=== PATIENT | male | born 1940 | race Caucasian/White ===

== ENCOUNTER 2024-11-01 15:39 | Inpatient (IN) | payer OTHER, MEDICARE ==
[~2024-11-01] VITALS: Ht 177.8 cm; Wt 85.4 kg
[~2024-11-01 15:39] MED LIST: ASPI81EC PO; ATEN50 PO; GLUC500; LISI20 PO; LOVA40 PO; OMEP20ER PO; Percocet 10-321 EACH PO; SAWPALMETTO; VALS80; Valium5 MG PO
[2024-11-01] MEDS ORDERED: NS 1,000 ML IV SCH ×2 (16:00→18:10)
[2024-11-01 16:12] LABS: BASOPHILS ABSOLUTE AUTO 0.04 K/mm3 (0.00-0.23); BASOPHILS PERCENT AUTO 0 % (0-2); EOSINOPHILS ABSOLUTE AUTO 0.04 K/mm3 (0.00-0.68); EOSINOPHILS PERCENT AUTO 0 % (0-6); Hematocrit 40.6 % (37.0-53.0); Hemoglobin 13.9 g/dL (13.5-17.5); IMMATURE GRAN ABSOLUTE AUTO 0.08 K/mm3 (0.00-0.10); IMMATURE GRAN PERCENT AUTO 1 % (0-1); LYMPHOCYTES ABSOLUTE AUTO 1.09 K/mm3 (0.84-5.20); LYMPHOCYTES PERCENT AUTO 8 % (21-46); MONOCYTES ABSOLUTE AUTO 1.49 K/mm3 (0.16-1.47); MONOCYTES PERCENT AUTO 10 % (4-13); Mean Corpuscular HGB 30.8 pg (26.0-34.0); Mean Corpuscular HGB Conc 34.2 g/dL (31.5-36.5); Mean Corpuscular Volume 90 fL (80-100); Mean Platelet Volume 11.7 fL (9.1-12.4); NEUTROPHILS ABSOLUTE AUTO 11.72 K/mm3 (1.96-9.15); NEUTROPHILS PERCENT AUTO 81 % (41-73); Platelet Count 161 K/mm3 (150-400); RDW Coefficient Variation 12.7 % (11.7-14.2); RDW Standard Deviation 41.9 fL (35.1-46.3); Red Blood Cell Count 4.51 M/mm3 (4.30-5.90); White Blood Cell Count 14.46 K/mm3 (4.00-11.30)
[2024-11-01] MEDS ORDERED: Acetaminophen 325 MG TABLET PO ONE (16:20)
[2024-11-01 16:52] LABS: Albumin, Blood 2.5 g/dL (3.4-5.0); Albumin/Globulin Ratio 0.7 (0.8-1.8); Bun/Creatinine Ratio 54.8 (12.0-20.0); Calcium, Blood 8.8 mg/dL (8.5-10.1); Creatinine, Blood 0.62 mg/dL (0.60-1.20); Globulin, Blood 3.8 g/dL (2.2-4.0); Potassium, Blood 4.9 mmol/L (3.5-5.5); Total Protein, Blood 6.3 g/dL (6.4-8.2)
[2024-11-01] MEDS ORDERED: Diltiazem HCl 5 MG / ML 5ML Vial IV ONE (21:35)
[2024-11-01 22:13] LABS: Source, Urine Voided
[2024-11-01 22:18] LABS: Bilirubin, Urine Neg (Neg); Blood, Urine Neg (Neg); Glucose Qualitative, Urine Neg (Neg); Ketones, Urine 3+ (Neg); Leukocyte Esterase, Urine Neg (Neg); Nitrite, Urine Neg (Neg); Protein, Urine 2+ (Neg); Urobilinogen, Urine 1+ (Normal)
[2024-11-01 22:26] LABS: Appearance, Urine Clear (Clear); Color, Urine Yellow (P-Yellow)
[2024-11-01 22:41] LABS: Amorphous Light (0-Heavy); Bacteria Rare /hpf; Red Blood Cells, Urine Not Seen /hpf (0-2); Squamous Epithelial Cells Rare /hpf (Few); White Blood Cells, Urine 0-2 /hpf (0-5)
[2024-11-01] MEDS ORDERED: Acetaminophen 325 MG TABLET PO PRN (23:55)
[2024-11-01] MEDS ORDERED: Ondansetron HCl 2 MG / ML 2ML Vial IV PRN (23:55)
[2024-11-02] VITALS (14 sets, daily range): BP systolic 96–127; BP diastolic 68–90
[2024-11-02] MEDS ORDERED: dilTIAZem HCL 125 MG in Dextrose 5% 100 ML IV SCH (00:10)
[2024-11-02] MEDS ORDERED: Lactated Ringer's 1,000 ML IV SCH (00:10)
[2024-11-02 00:34] LABS: Magnesium, Blood 1.2 mg/dL (1.6-2.4)
[2024-11-02 00:36] LABS: Thyroid Stimulating Hormone 4.26 uIU/mL (0.360-4.800)
[2024-11-02] MEDS ORDERED: Magnesium Sulf 2 GM/Water 50ML 50 ML IV ONE (01:30)
[2024-11-02] MEDS ORDERED: Flonase 0.05% N16 GM (05:00)
[2024-11-02] MEDS ORDERED: METO50 PO (05:01)
[2024-11-02] MEDS ORDERED: NARCAN4 M1 (05:01)
[2024-11-02] MEDS ORDERED: ZYRTEC10 M2 PO (05:02)
[2024-11-02] MEDS ORDERED: ATOR10 PO (05:02)
[2024-11-02] MEDS ORDERED: ALLO100 PO (05:03)
[2024-11-02] MEDS ORDERED: ELIQUIS5 M2 PO (05:03)
[2024-11-02] MEDS ORDERED: BISA5EC PO (05:03)
[2024-11-02] MEDS ORDERED: OMEP20ER PO (05:04)
[2024-11-02] MEDS ORDERED: METF500C PO (05:04)
[2024-11-02] MEDS ORDERED: LOSA25 PO (05:05)
[2024-11-02] MEDS ORDERED: TAMS.4ER PO (05:05)
[2024-11-02] MEDS ORDERED: Bisacodyl 5 MG TabEC PO PRN (05:30)
[2024-11-02] MEDS ORDERED: OxyCODONE 10/Acetamin 325 TABLET PO PRN (05:35)
[2024-11-02] MEDS ORDERED: Omeprazole 20 MG CapCR PO SCH (06:00)
--- NOTE | 2024-11-02 06:57 | NUR ---
NOC SHIFT SUMMARY PT ARRIVED TO UNIT, ORIENTED X2-3. CONFUSED AND HALLUCINATIONS NOTED. PT REPORTS DRINKING 3-4 GLASSES OF WINE A DAY BUT STOPPED A WEEK AGO WHEN HE GOT [facility]. SON AT BEDSIDE, PLEASANT AND COOPERATIVE. PT PULLED MULTIPLE IVS, REDIRECTABLE AND BOTH IVS WRAPPED. CARDIZEM GTT AT 5MG/ML
[2024-11-02 07:08] LABS: BASOPHILS ABSOLUTE AUTO 0.02 K/mm3 (0.00-0.23); BASOPHILS PERCENT AUTO 0 % (0-2); EOSINOPHILS ABSOLUTE AUTO 0.03 K/mm3 (0.00-0.68); EOSINOPHILS PERCENT AUTO 0 % (0-6); Hematocrit 39.2 % (37.0-53.0); Hemoglobin 13.5 g/dL (13.5-17.5); IMMATURE GRAN ABSOLUTE AUTO 0.06 K/mm3 (0.00-0.10); IMMATURE GRAN PERCENT AUTO 1 % (0-1); LYMPHOCYTES ABSOLUTE AUTO 1.16 K/mm3 (0.84-5.20); LYMPHOCYTES PERCENT AUTO 9 % (21-46); MONOCYTES PERCENT AUTO 11 % (4-13); Mean Corpuscular HGB Conc 34.4 g/dL (31.5-36.5); Mean Corpuscular Volume 90 fL (80-100); Mean Platelet Volume 10.8 fL (9.1-12.4); NEUTROPHILS ABSOLUTE AUTO 10.53 K/mm3 (1.96-9.15); NEUTROPHILS PERCENT AUTO 79 % (41-73); Platelet Count 145 K/mm3 (150-400); RDW Coefficient Variation 12.8 % (11.7-14.2); RDW Standard Deviation 42.5 fL (35.1-46.3); Red Blood Cell Count 4.35 M/mm3 (4.30-5.90)
[2024-11-02 07:25] LABS: Albumin, Blood 2.3 g/dL (3.4-5.0); Albumin/Globulin Ratio 0.6 (0.8-1.8); Bilirubin, Total 0.8 mg/dL (0.1-1.0); Bun/Creatinine Ratio 54.2 (12.0-20.0); Calcium, Blood 8.1 mg/dL (8.5-10.1); Creatinine, Blood 0.55 mg/dL (0.60-1.20); Globulin, Blood 3.6 g/dL (2.2-4.0); Magnesium, Blood 1.8 mg/dL (1.6-2.4); Total Protein, Blood 5.9 g/dL (6.4-8.2)
[2024-11-02] MEDS ORDERED: Fluticasone 0.05% Nasal Spray SCH (09:00)
[2024-11-02] MEDS ORDERED: Allopurinol 100 MG Tab PO SCH (09:00)
[2024-11-02] MEDS ORDERED: Loratadine 10 MG Tab PO SCH (09:00)
[2024-11-02] MEDS ORDERED: Atorvastatin 10 MG Tab PO SCH (09:00)
[2024-11-02] MEDS ORDERED: Enoxaparin 40 MG/0.4 ML SYR SC SCH (09:00)
[2024-11-02] MEDS ORDERED: Apixaban 5 MG Tab PO SCH (09:00)
[2024-11-02] MEDS ORDERED: Losartan Potassium 25 MG Tab PO SCH (09:00)
[2024-11-02] MEDS ORDERED: Tamsulosin HCl 0.4 MG Cap PO SCH (09:00)
[2024-11-02] MEDS ORDERED: NS 500 ML IV SCH (10:00)
[2024-11-02] MEDS ORDERED: NS 500 ML IV ONE (11:00)
[2024-11-02] MEDS ORDERED: Metoprolol Tartrate 50 MG Tab PO SCH (12:00)
--- NOTE | 2024-11-02 16:29 | NUR ---
SHIFT SUMMARY. PT HAS DONE WELL OVERALL. AOX3-4, PLEASANT, COOPERATIVE, ABLE TO MAKE NEEDS KNOWN. SPEECH THERAPY EVALUATION THIS MORNING, PT CLEAR FOR THIN LIQUIDS, MINCED + MOIST DIET. PAIN ADEQUATELY MANAGED VIA EMAR. DILT DRIP HAS BEEN OFF SINCE ABOUT 1230, HR HAS PRIMARILY BEEN IN THE 80s-90s RANGE SINCE. BP STABLE. MAINTAINING ADEQUATE SATURATION ON ROOM AIR. PT HAD ESOPHAGEAL DILATION + BIOPSY SCHEDULED OUTPATIENT TODAY BUT WAS UNABLE TO HAVE IT COMPLETED INPATIENT. SON REPORTS THAT HE IS UNSURE WHEN HE WILL BE ABLE TO HAVE OPERATION RESCHEDULED. SHIFT OTHERWISE UNREMARKABLE. BED LOCKED IN LOWEST POSITION. CALL LIGHT WITHIN REACH. CONTINUING TO MONITOR.
--- NOTE | 2024-11-02 18:29 | NUR ---
PALLIATIVE CARE NOTE: ATTEMPTED TO MEET WITH PT TO DISCUSS CODE STATUS. PT SLEEPING ON MULTIPLE ATTEMPTS. DID SPEAK TO SON ABILIO IN ROOM. ABILIO STATED HE WAS PRESENT WHEN MD HAD CONVERSATION ABOUT CODE STATUS AND PT HAD DECIDED HE WOULD WANT CPR IF NEEDED. PT SLEPT THROUGH OUR CONVERSATION IN THE ROOM. PT APPEARED COMFORTABLE AND IN NO APPARENT DISTRESS. RR E/U.
[2024-11-02] MEDS ORDERED: NS 1,000 ML IV SCH (22:40)
[2024-11-03 03:44] VITALS: BP 136/93
[2024-11-03 04:41] LABS: BASOPHILS ABSOLUTE AUTO 0.04 K/mm3 (0.00-0.23); BASOPHILS PERCENT AUTO 0 % (0-2); EOSINOPHILS ABSOLUTE AUTO 0.08 K/mm3 (0.00-0.68); EOSINOPHILS PERCENT AUTO 1 % (0-6); Hematocrit 37.2 % (37.0-53.0); Hemoglobin 12.5 g/dL (13.5-17.5); IMMATURE GRAN ABSOLUTE AUTO 0.08 K/mm3 (0.00-0.10); IMMATURE GRAN PERCENT AUTO 1 % (0-1); LYMPHOCYTES ABSOLUTE AUTO 0.85 K/mm3 (0.84-5.20); LYMPHOCYTES PERCENT AUTO 7 % (21-46); MONOCYTES ABSOLUTE AUTO 1.33 K/mm3 (0.16-1.47); MONOCYTES PERCENT AUTO 11 % (4-13); Mean Corpuscular HGB Conc 33.6 g/dL (31.5-36.5); Mean Corpuscular Volume 89 fL (80-100); Mean Platelet Volume 11.1 fL (9.1-12.4); NEUTROPHILS ABSOLUTE AUTO 9.71 K/mm3 (1.96-9.15); NEUTROPHILS PERCENT AUTO 80 % (41-73); Platelet Count 138 K/mm3 (150-400); RDW Coefficient Variation 12.8 % (11.7-14.2); RDW Standard Deviation 41.9 fL (35.1-46.3); Red Blood Cell Count 4.16 M/mm3 (4.30-5.90); White Blood Cell Count 12.09 K/mm3 (4.00-11.30)
[2024-11-03 05:03] LABS: Albumin, Blood 2.2 g/dL (3.4-5.0); Albumin/Globulin Ratio 0.6 (0.8-1.8); Bilirubin, Total 0.7 mg/dL (0.1-1.0); Bun/Creatinine Ratio 56.6 (12.0-20.0); Calcium, Blood 8.3 mg/dL (8.5-10.1); Creatinine, Blood 0.46 mg/dL (0.60-1.20); Globulin, Blood 3.6 g/dL (2.2-4.0); Total Protein, Blood 5.8 g/dL (6.4-8.2)
[2024-11-03] MEDS ORDERED: Metoprolol Tartrate 50 MG Tab PO STA (06:22)
--- NOTE | 2024-11-03 06:54 | NUR ---
SHIFT SUMMARY: PT IS A&O TO SELF AND PERSON, CONFUSED. HYPOTENSIVE 96/71, HR TACHY >100, ON RA SATTING 88%, PLACED PT ON 2L O2 VIA NC. AFIB 90'S-140'S. THIS RN WAS NOT ABLE TO GIVE HIS NIGHT DOSE OF LOPRESSOR D/T BP PARAMETERS NOT BEING MET. CALLED HOSPITALIST LATER FOR HR INCREASING TO 130'S. HE ORDERED TO GIVE HIS MORNING DOSE OF LOPRESSOR EARLY AT 0400. C/O PAIN IN HIS THROAT AND BACK, MEDICATED PER EMAR. X2 ASSIST, NOOB THIS SHIFT. REPOSITIONS SELF IN BED. PT INCONTINENT OF URINE, BRIEF IN PLACE. AFTER MULTIPLE BED CHANGES, PLACED WICKING SYSTEM ON PT. SMALL AMOUNTS OF SHILA COLORED URINE. NO BM THIS SHIFT. BED IN LOWEST POSITION, CALL LIGHT WITHIN REACH. BED ALARM SET FOR PT'S SAFETY D/T PT NOT USING CALL LIGHT APPROPRIATELY.
[2024-11-03] MEDS ORDERED: Metoprolol Tartrate 1 MG/ML 5 ML VIAL IV ONE (07:40)
--- NOTE | 2024-11-03 07:43 | NUR ---
ASSUMPTION NOTE: THIS RN TO ASSUME CARE OF PATIENT. PATIENT IS AWAKE AND TALKING WITH DOCTORS. IS ALERT AND ORIENTED X2-3, KNOWS HE IS IN [place], NOT AWARE HE IS IN THE HOSPITAL. ALERT TO SELF & HIS SON. STAT ORDER WAS DC'D AND MEDICATION CHANGED FROM THIS EVENING TO AFTERNOON. TO BE GIVEN STAT LOPRESSOR AWAITING ORDER. PATIENT HAS CALL LIGHT WITHIN REACH, BED IN LOWEST POSITION & STATING NOTHING ELSE IS NEEDED AT THIS TIME.
[2024-11-03 07:44] VITALS: BP 123/96
[2024-11-03] MEDS ORDERED: Metoprolol Tartrate 25 MG Tab PO ONE (09:55)
--- NOTE | 2024-11-03 10:29 | NUR ---
MD ROUNDED: MD ROUNDED AND STATED DISCHARGE POTENTIALLY TOMORROW AND TO HAVE PT'S SON SCHEDULE THE BIOPSY OUTPT HE MISSED IT DUE TO BEING ADMITTED.
[2024-11-03 11:21] VITALS: BP 90/62
[2024-11-03 12:35] VITALS: BP 121/97
[2024-11-03] MEDS ORDERED: Metoprolol Tartrate 50 MG Tab PO SCH ×2 (13:00)
[2024-11-03] MEDS ORDERED: TraMADol HCl 50 MG Tab PO PRN (14:45)
--- NOTE | 2024-11-03 14:54 | NUR ---
TRANSFER NOTE: REPORT GIVEN TO RECEIVING RN PRIOR TO ARRIVAL. PT IS ALERT AND ORIENTED X2-3,SEE PREVIOUS NOTES FOR MORE INFORMATION. SON AT BEDSIDE WITH PT. WORKED WITH PHYSICAL THERAPY AND WAS ABLE TO SIT AT BEDSIDE AND DO SOME STRETHCES DUE TO FEELING LIGHT HEADED/DIZZY AND SOME ABDOMINAL PAIN. PT STATED "HE FELT LIKE HE NEEDED TO POOP". WAS MEDICATED FOR PAIN & GIVEN A PRN STOOL SOFTENER ALONG WITH A BROWN COW TO HELP. PT IS ON TELE SHOWING AFIB WITH RATE 110-120, MEDCIATIONS WERE ADJSUTED TO CONTROL HEART RATE THIS MORNING PER MD. PATIENT SATTING >92% ON ROOM AIR. HAS A HEATING PAD FOR SOME PAIN. TOOK ALL PERSONAL BELONGINGS WITH HIM ALONG WITH CHART.
[2024-11-03] MEDS ORDERED: NS 1,000 ML IV SCH (15:25)
--- NOTE | 2024-11-03 15:45 | NUR ---
PATIENT TRANSFERRED FROM PCU 9 TO ROOM 354, REPORT RECEIVED FROM GLORIA HOFF. PATIENT A/O TO SELF AND FAMILY ONLY AT THIS TIME. REPORTS GOOD PAIN CONTROL. ORIENTED TO ROOM AND USE OF CALL LIGHT. SON AT BEDSIDE AND PLAN OF CARE DISCUSSED. PATIENT A-FIB ON TELE WITH HR 100-110. BED ALARM SET FOR SAFETY.
[2024-11-03 16:28] VITALS: BP 117/82
[2024-11-03 19:21] VITALS: BP 116/84
[2024-11-03] MEDS ORDERED: Calcium Carbonate 500 MG Tab Chew PO PRN (21:10)
--- NOTE | 2024-11-03 22:33 | NUR ---
FLOOR INSTALLATION MECHANIC, VICKEY KNOX, CALLED TO LET RN KNOW THE PT HAD A 6 SEC RUN OF AFIB RVR RATE OF 152. PT HAS RETURNED TO AFIB RATE OFF 122 AT TIME OF CALL. CHECKED ON PT, NO SIGNS OF DISTRESS. ABILIO, PRIMARY NURSE, HAS BEEN NOTIFIED.
[2024-11-04 00:11] VITALS: BP 130/102
--- NOTE | 2024-11-04 06:46 | NUR ---
SHIFT SUMMARY PT ALERT AND ORIENTED TIMES 2 . PT ADMITTED FOR ATRIAL FIB WITH RVR. PT IS CONFUSED AT TIMES. PT STATES THIS NURSE IS ALSO A SENATOR, AND ONE OF THREE, THAT HE NEEDED TO TALK TO. PT WAS IRRATATED WITH TELE AND KEPT TAKING IT OFF, AND EVENTUALLY REFUSING TO WEAR IT. PT PULLED HIS IV, STATING HE DID NOT WANT IT ANYMORE. PT PULLED HIS PUREWICK OFF. HE REFUSED TO HAVE STAFF HELP WITH CHANGING HIS CLOTHING. HE DID ASK FOR FOOD AND WAS GIVEN TURKEY SANDWICH AND ORANGE SHERBERT. I0 PT IS COOPERATIVE WITH CARE. CALL LIGHT WITHIN REACH, RAILS TIMES 2, BED IN LOW POSITION.
[2024-11-04] MEDS ORDERED: NS 1,000 ML IV SCH (07:00)
[2024-11-04 07:44] VITALS: BP 136/85
[2024-11-04] MEDS ORDERED: Metoprolol Tartrate 50 MG Tab PO SCH (08:00)
[2024-11-04 11:53] VITALS: BP 130/92
[2024-11-04 13:02] LABS: BASOPHILS ABSOLUTE AUTO 0.05 K/mm3 (0.00-0.23); BASOPHILS PERCENT AUTO 0 % (0-2); EOSINOPHILS ABSOLUTE AUTO 0.03 K/mm3 (0.00-0.68); EOSINOPHILS PERCENT AUTO 0 % (0-6); Hematocrit 40.6 % (37.0-53.0); Hemoglobin 13.9 g/dL (13.5-17.5); IMMATURE GRAN ABSOLUTE AUTO 0.09 K/mm3 (0.00-0.10); IMMATURE GRAN PERCENT AUTO 1 % (0-1); LYMPHOCYTES ABSOLUTE AUTO 1.16 K/mm3 (0.84-5.20); LYMPHOCYTES PERCENT AUTO 8 % (21-46); MONOCYTES ABSOLUTE AUTO 1.62 K/mm3 (0.16-1.47); MONOCYTES PERCENT AUTO 11 % (4-13); Mean Corpuscular HGB 30.8 pg (26.0-34.0); Mean Corpuscular HGB Conc 34.2 g/dL (31.5-36.5); Mean Corpuscular Volume 90 fL (80-100); Mean Platelet Volume 11.3 fL (9.1-12.4); NEUTROPHILS ABSOLUTE AUTO 12.08 K/mm3 (1.96-9.15); NEUTROPHILS PERCENT AUTO 80 % (41-73); Platelet Count 148 K/mm3 (150-400); RDW Coefficient Variation 12.9 % (11.7-14.2); RDW Standard Deviation 42.3 fL (35.1-46.3); Red Blood Cell Count 4.51 M/mm3 (4.30-5.90); White Blood Cell Count 15.03 K/mm3 (4.00-11.30)
[2024-11-04 13:25] LABS: Albumin, Blood 2.3 g/dL (3.4-5.0); Albumin/Globulin Ratio 0.7 (0.8-1.8); Bilirubin, Total 0.8 mg/dL (0.1-1.0); Bun/Creatinine Ratio 49.1 (12.0-20.0); Calcium, Blood 8.7 mg/dL (8.5-10.1); Creatinine, Blood 0.51 mg/dL (0.60-1.20); Globulin, Blood 3.5 g/dL (2.2-4.0); Total Protein, Blood 5.8 g/dL (6.4-8.2)
[2024-11-04 15:32] VITALS: BP 115/82
--- NOTE | 2024-11-04 17:14 | NUR ---
SHIFT SUMMARY PT IS A/O TO FAMILY, SELF AND PLACE AT TIMES. PT IS IMPULSIVE AT TIMES WITH PULLING AT LINES/CORDS. ON TELE RUNNING AFIB IN THE 100-110'S. PER DIRECTOR OF TAX SERVICES OCCASIONALLY, BRIEFLY IN THE 130'S, PHYSICAN AWARE. NS RUNNING @ 100 ML/HR. SON AT BEDSIDE THROUGHOUT THIS SHIFT. PT PRESENTS WITH LITTLE MOTIVATION.
[2024-11-04] MEDS ORDERED: Polyethylene Glycol 3350 17 gm PO PRN (18:00)
[2024-11-04 19:54] VITALS: BP 116/85
[2024-11-04] MEDS ORDERED: OLANZapine 10 MG Vial IM ONE (20:40)
[2024-11-04] MEDS ORDERED: Melatonin 3 MG Tab PO SCH (21:00)
[2024-11-05] VITALS (7 sets, daily range): BP systolic 106–126; BP diastolic 74–94
[2024-11-05 04:43] LABS: BASOPHILS ABSOLUTE AUTO 0.06 K/mm3 (0.00-0.23); BASOPHILS PERCENT AUTO 0 % (0-2); EOSINOPHILS ABSOLUTE AUTO 0.06 K/mm3 (0.00-0.68); EOSINOPHILS PERCENT AUTO 0 % (0-6); Hematocrit 38.1 % (37.0-53.0); IMMATURE GRAN ABSOLUTE AUTO 0.09 K/mm3 (0.00-0.10); IMMATURE GRAN PERCENT AUTO 1 % (0-1); LYMPHOCYTES ABSOLUTE AUTO 1.07 K/mm3 (0.84-5.20); LYMPHOCYTES PERCENT AUTO 7 % (21-46); MONOCYTES ABSOLUTE AUTO 1.91 K/mm3 (0.16-1.47); MONOCYTES PERCENT AUTO 12 % (4-13); Mean Corpuscular HGB 30.4 pg (26.0-34.0); Mean Corpuscular HGB Conc 34.1 g/dL (31.5-36.5); Mean Corpuscular Volume 89 fL (80-100); Mean Platelet Volume 11.2 fL (9.1-12.4); NEUTROPHILS ABSOLUTE AUTO 12.36 K/mm3 (1.96-9.15); NEUTROPHILS PERCENT AUTO 79 % (41-73); Platelet Count 141 K/mm3 (150-400); RDW Coefficient Variation 12.9 % (11.7-14.2); RDW Standard Deviation 42.3 fL (35.1-46.3); Red Blood Cell Count 4.27 M/mm3 (4.30-5.90); White Blood Cell Count 15.55 K/mm3 (4.00-11.30)
[2024-11-05 05:07] LABS: Albumin/Globulin Ratio 0.6 (0.8-1.8); Bun/Creatinine Ratio 46.1 (12.0-20.0); Calcium, Blood 8.1 mg/dL (8.5-10.1); Creatinine, Blood 0.5 mg/dL (0.60-1.20); Globulin, Blood 3.4 g/dL (2.2-4.0); Potassium, Blood 4.3 mmol/L (3.5-5.5); Total Protein, Blood 5.4 g/dL (6.4-8.2)
--- NOTE | 2024-11-05 06:22 | NUR ---
SHIFT SUMMARY PT ALERT AND ORIENTED TIMES 2 . PT ADMITTED FOR ATRIAL FIB WITH RVR. PT IS CONFUSED AT TIMES. PT BECAME INCREASINGLY AGITATED AND CONFUSED. REMOVING TELE, O2, PUREWICK, AND PULSE OX. ONE TIME ORDER FOR ZYPREXA 5ML IM OBTAINED AND ADMINISTERED IN LEFT DELTOID. PT TOLERATED WELL AND APPEARED MUCH LESS AGITATED AND APPEARED TO SLEEP FOR SEVERL HOURS ON AND OFF. PT WAS GIVEN WATER TO DRINK REQUESTED. PT FINISHED IV FLUIDS AND IS SALINE LOCKED. PT WAS CHANGED AND GIVEN BED BATH. PT REFUSED TELE THROUGHOUT THE NIGHT.TELE SENT BACK. PT APPEARS TO BE RESTING COMFORTABLY.
[2024-11-05] MEDS ORDERED: Metoprolol Tartrate 50 MG Tab PO SCH (09:00)
[2024-11-05 09:36] LABS: Magnesium, Blood 1.2 mg/dL (1.6-2.4); Phosphorus, Blood 2.8 mg/dL (2.5-4.9); Prealbumin, Blood 7.4 mg/dL (20.0-40.0)
[2024-11-05] MEDS ORDERED: Magnesium Sulf 2 GM/Water 50ML 50 ML IV SCH (10:00)
[2024-11-05] MEDS ORDERED: NS 1,000 ML IV SCH (11:00)
--- NOTE | 2024-11-05 12:51 | NUR ---
PALLIATIVE CARE NOTE: [facility] POLST/AD ON FILE. NONE ON FILE WITH US OR POLST REGISTRY.
[2024-11-05] MEDS ORDERED: Metoprolol Tartrate 1 MG/ML 5 ML VIAL IV ONE (13:55)
--- NOTE | 2024-11-05 14:47 | NUR ---
PALLIATIVE CARE NOTE: RESPONSE RE[facility]IVED FROM [facility]. PT HAS NO RECORD OF AD/POLST ON FILE.
--- NOTE | 2024-11-05 15:56 | NUR ---
FAXED REQUEST TO [place] [facility] REQUESTING RECENT H&P, IMAGING REPORTS AND PROGRESS NOTES PER DR. MCKENZIE'S REQUEST.
[2024-11-05] MEDS ORDERED: dilTIAZem HCL 125 MG in Dextrose 5% 100 ML IV SCH (16:30)
[2024-11-05] MEDS ORDERED: Lactated Ringer's 1,000 ML IV SCH (17:00)
--- NOTE | 2024-11-05 17:55 | NUR ---
PT ARRIVED IN THE ROOM, REPORT RECEIVED FROM MED FLOOR RN. 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 PT WAS LETHARGIC UPON ARRIVAL, PICKING ON LINES AND TUBINGS. ALERT AND ORIENTED TO SELF AND SON. MUMBLED SPEECH. LUNGS COARSE AND BREATHING IS GURGLY ON 4L UPON ARRIVAL SATTING 84-86% NOW ON 6L OF O2 SATS KEPT ABOVE 90%, SBP 120'S, HRR AFIB 110-140'S, CARDIZEM GTT STARTED AND TURNED UP TO 10MG/HR HRR STILL IN THE 110-115. AFEBRILE. PUREWICK IN PLACE PT ABLE TO VOID DARK YELLOW URINE. PT REMAINS NPO SUCTION AT THE BEDSIDE NEEDED ORAL CARE PROVIDED. LR RUNNING AT 125MLS/HR. SON AT THE BEDSIDE. PALLIATIVE CARE NURSE HANDED INFORMATION FROM THE [facility], WAS WAITING FOR DR MCKENZIE TO COME AND DISCLOSED NEW CANCER DIAGNOSIS WITH BOTH SON AND PT, CALLED TO LET US KNOW TO HAVE IT DISCLOSED WITH THE DAY PROVIDER TOMORROW, PALLIATIVE CARE RN MADE AWARE. PT REMAINS FULL CODE AT THIS TIME. TO REPORT TO ONCOMING SHIFT
[2024-11-05] MEDS ORDERED: Enoxaparin 40 MG/0.4 ML SYR SC SCH (18:00)
--- NOTE | 2024-11-05 18:21 | NUR ---
DR SCHAFFER AT THE BEDSIDE AT THIS TIME DISCLOSING CANCER DIAGNOSIS WITH THE SON AT THE BEDSIDE
--- NOTE | 2024-11-05 19:01 | NUR ---
PALLIATIVE CARE CONFERENCE: REVIEWED MEDICAL RECORD, SPOKE TO MD, PRIMARY RN PRIOR TO MEETING. MET WITH SON ABILIO IN ROOM AND SPOUSE JENNIFER OVER VIDEO CHAT. UNABLE TO COME TO HOSPITAL DUE TO HER HAVING RECENT SURGICAL PROCEDURE HERSELF. 1230 DISCUSSED GOC. PER PT HAS STATED IN THE PAST HE WOULD WANT EVERYTHING DONE UNLESS HE WAS IN A COMA INCLUDING CPR- CHEST COMPRESSION AND INTUBATION. STATED PT WENT TO [facility] AND WAS TOLD HE HAD ESOPHAGEAL CANCER AND "POLYPS" WERE FOUND IN HIS LUNGS ALSO. AT THAT TIME PT WAS AGREEABLE TO TREATMENT ALTHOUGH THE DOCTOR HAD TOLD PT "YOU SHOULD JUST BE MANAGED WITH PAIN MEDICATIONS NOW". PT WAS SET UP WITH APPOINTMENT IN LATE OCTOBER FOR GI CONSULTATION TO GET BIOPSY OF MASS IN ESOPHAGUS AND WAS REFERRED TO ONCOLOGY. DISCUSSED CONCERNS OF CURRENT MEDICAL STATUS AND PT NEEDING A PEG TUBE FOR NOURISHMENT. DISCUSSED RISKS OF PEG TUBE INCLUDING POTENTIAL FOR PT TO CONTINUE TO ASPIRATE DUE TO INABILITY TO SWALLOW SECRETIONS, POTENTIAL FOR ASPIRATION ON VOMIT DUE TO STRICTURE, PT REMOVING PEG TUBE DUE TO HIS CURRENT STATE OF DELIRIUM. PER AND SON THEY WANT TO ATTEMPT ALL MEASURES DESPITE RISKS JUST IN CASE IT DOES GO WELL. SON ABILIO WOULD APPRECIATE TO KNOW WHAT THE DOCUMENTATION REPORTED FROM THE [facility]. INFORMED HIM WE WERE WAITING FOR RETURN FAX OF REQUESTED MEDICAL RECORDS. 1600 CALLED [place] [facility] TO CHECK ON STATUS OF RETURN DOCUMENTS. NO ANSWER. CALLED [place] AND SPOKE TO AOD. SHE WAS ABLE TO ACCESS PARTIAL DOCUMENTS AND STATED SHE WOULD SEND THEM OVER VIA FAX. 1645: RECEIVED [facility] DOCUMENTS WHICH INCLUDED CT REPORTS OF ABD AND HEAD. NOTIFIED MD REPORTS WERE IN.
[2024-11-06 04:58] LABS: BASOPHILS ABSOLUTE AUTO 0.04 K/mm3 (0.00-0.23); BASOPHILS PERCENT AUTO 0 % (0-2); EOSINOPHILS ABSOLUTE AUTO 0.04 K/mm3 (0.00-0.68); EOSINOPHILS PERCENT AUTO 0 % (0-6); Hematocrit 36.3 % (37.0-53.0); IMMATURE GRAN ABSOLUTE AUTO 0.13 K/mm3 (0.00-0.10); IMMATURE GRAN PERCENT AUTO 1 % (0-1); LYMPHOCYTES PERCENT AUTO 8 % (21-46); MONOCYTES ABSOLUTE AUTO 1.67 K/mm3 (0.16-1.47); MONOCYTES PERCENT AUTO 11 % (4-13); Mean Corpuscular HGB 29.9 pg (26.0-34.0); Mean Corpuscular HGB Conc 33.1 g/dL (31.5-36.5); Mean Corpuscular Volume 90 fL (80-100); NEUTROPHILS ABSOLUTE AUTO 11.98 K/mm3 (1.96-9.15); NEUTROPHILS PERCENT AUTO 79 % (41-73); Platelet Count 153 K/mm3 (150-400); RDW Coefficient Variation 13.2 % (11.7-14.2); RDW Standard Deviation 43.7 fL (35.1-46.3); Red Blood Cell Count 4.02 M/mm3 (4.30-5.90); White Blood Cell Count 15.06 K/mm3 (4.00-11.30)
[2024-11-06 05:50] LABS: Albumin/Globulin Ratio 0.6 (0.8-1.8); Bun/Creatinine Ratio 50.4 (12.0-20.0); Calcium, Blood 8.2 mg/dL (8.5-10.1); Creatinine, Blood 0.56 mg/dL (0.60-1.20); Globulin, Blood 3.6 g/dL (2.2-4.0); Potassium, Blood 4.1 mmol/L (3.5-5.5); Total Protein, Blood 5.6 g/dL (6.4-8.2)
--- NOTE | 2024-11-06 06:00 | NUR ---
SHIFT SUMMARY PATIENT ALERT AND ORINETED X2-3. HAD NO COMPLAINTS OF PAIN OR SHORTNESS OF BREATH. HE REMAINS ON 6 LITERS O2 VIA NC TO MAINTAIN SPO2 >90%. HEART RATE 100'S ON 10 ZE. BLOOD PRESSURE STABLE. WILL CONTINUE TO MONITOR. CALL LIGHT WITHIN REACH.
[2024-11-06 07:37] VITALS: BP 124/97
[2024-11-06] MEDS ORDERED: Bisacodyl 10 MG Supp PR PRN (09:50)
[2024-11-06] MEDS ORDERED: Magnesium Hydroxide Conc 10 ML UDC PO PRN ×2 (09:50→10:11)
[2024-11-06] MEDS ORDERED: Furosemide 10 MG / ML 2ML Vial IV SCH (10:00)
[2024-11-06] MEDS ORDERED: Docusate Sodium Liquid 100 MG UDC PO SCH (11:00)
[2024-11-06 11:35] VITALS: BP 153/94
--- NOTE | 2024-11-06 13:42 | NUR ---
MET WITH PT'S SON ABILIO, WE REVIEWED THE PT'S [facility] TOGETHER. ABILIO STATES HE HAD ALREADY HEARD THE INFORMATION, BUT REQUESTED WE REVIEW IT AGAIN NOW. HE APPEARS TO BE MORE RECEPTIVE TO THE INFORMATION TODAY THAN PREVIOUSLY. TODAY, HE V/U THAT THE PT'S CANCER DIAGNOSIS IS TERMINAL. THE PATIENT HAS BEGUN TELLING ABILIO, "I JUST WANT TO GO HOME, PLEASE JUST GET ME HOME." PT IS CURRENTLY ON 6L 02 WITH MASK. HE IS ALSO ON A DILTIAZEM GTT, HR CURRENTLY AROUND 100/MIN. PT DESATS WITH MINIMAL ACTIVITY, BUT RETURNS TO BETWEEN 88% AND 92% WITH REST. SON ABILIO DISCUSSED THIS WITH PT'S JENNIFER, THEN JENNIFER CALLED THIS PC RN. WE DISCUSSED WHAT HOSPICE AT HOME LOOKS LIKE. SHE STATES FEELING CONFIDENT THAT WITH BOTH HER DAUGHTER AND THE PATIENT'S SON, THEY WILL BE ABLE TO CARE FOR THE PATIENT. JENNIFER JUST HAD A BACK SURGERY AND IS CURRENTLY HOMEBOUND. UNFORTUNATELY, THE PATIENT WOULD NOT BE ABLE TO DISCHARGE HOME WITH HOSPICE UNTIL FRIDAY, 2 DAYS FROM NOW. THERE IS CONCERN SURROUNDING PT'S INABILITY TO SWALLOW PILLS, HE WILL REQUIRE METOPROLOL FOR THE A-FIB W RVR. HOWEVER, THE TEAM IS DISCUSSING POSSIBLE RECTAL ADMINISTRATION SO THE PATIENT WILL BE ABLE TO GO HOME. NO PLANS FINALIZED AT THIS TIME, WILL CONTINUE WORKING WITH PHYSICIAN AND BEDSIDE RN.
[2024-11-06] MEDS ORDERED: LORazepam 2 MG/ML 1ML Injection IV PRN (14:50)
[2024-11-06] MEDS ORDERED: Morphine Sulfate 20 MG/1ML 1 ML Oral Syringe SL PRN (14:50)
[2024-11-06] MEDS ORDERED: Scopolamine Hydrobromide Patch TOP PRN (14:50)
[2024-11-06] MEDS ORDERED: Metoprolol Tartrate 25 MG Tab PO SCH (14:52)
[2024-11-06] MEDS ORDERED: Acetaminophen 650 MG Supp PR PRN (14:55)
[2024-11-06] MEDS ORDERED: Atropine Sulfate 1% Opth Soln 2ML BTL SL PRN (14:55)
[2024-11-06] MEDS ORDERED: Metoprolol Tartrate 25 MG Tab PO PRN (15:05)
[2024-11-06 16:49] VITALS: BP 124/72
[2024-11-06 17:48] VITALS: BP 144/80
[2024-11-06] MEDS ORDERED: Metoprolol Tartrate 25 MG Tab XX PRN (18:00)
--- NOTE | 2024-11-06 18:10 | NUR ---
SHIFT NOTE: PT ALERT AND ORIENTED TO SELF AND TIME ONLY THIS AM. AFTER HIS SPEECH EVAL HE HAS BEEN ABLE TO TOLERATE SMALL AMOUNTS OF WARM THIN LIQUIDS. HIS O2 DEMAND WENT FROM 6LNC UP TO 13L THIS AFTERNOON. NC WAS SWITCHED TO A MASK DUE TO MOUTH BREATHING AND O2 WAS TITRATED BACK DOWN TO 6L. PT HAS REMAINED IN AFIB T/O DAY. DILT WAS RUNNING PER EMAR. DILT WAD DISCONTINUED WHEN COMFORT ORDERS WERE PLACED. LOPRESSOR GIVEN PER EMAR FOR ELEVATED HR. HE HAS BEEN BED BOUND ALL DAY DUE TO WEAKNESS AND HEART RATE. NO BM THIS SHIFT. PT VOIDING VIA PW. STAFF HAS REPOSITIONED PT IN BED T/O DAY. SHARA HAS BEEN UPDATED ON PLAN OF CARE AND HAS OPTED TO GO COMFORT CARE WITH CONTINUATION OF CHECKING VITALS TO OPTIMIZE PATIENT TO GET HOME ON HOSPICE. CARE CONTINUES
[2024-11-06 20:21] VITALS: BP 107/72
[2024-11-06] MEDS ORDERED: Sennosides 8.6 MG Tab PO SCH (21:00)
[2024-11-06] MEDS ORDERED: Docusate Sodium 100 MG Cap PO SCH (21:00)
[2024-11-07 00:21] VITALS: BP 125/87
[2024-11-07 04:10] VITALS: BP 109/81
--- NOTE | 2024-11-07 06:42 | NUR ---
PT ALERT AND ORIENTED TO SELF. ON COMFORT CARE. HR WILL SOMETIMES GET TO OVER 100 BUT NON-SUSTAINED. TYLENOL GIVEN FOR PAIN. Q 2 TURNS. FAMILY AT THE BEDSIDE AT THE START OF SHIFT BUT LEFT LATER. SON REQUESTING Q4 VITALS.
[2024-11-07 08:07] VITALS: BP 109/91
--- NOTE | 2024-11-07 10:13 | NUR ---
HEART RATE PT SPO2 MONITOR IS NOT ACCCURATELY MONITORING PT HEART RATE. FINGER PROBE READING 30-50 WHEN APICALLY HIS HR IS 120 BPM. MEDCIATED WITH RECTAL LOPRESSOR. CARE ONGOING.
[2024-11-07 11:10] VITALS: BP 132/94
--- NOTE | 2024-11-07 11:21 | NUR ---
NOTE PT RESTING QUIETLY. SON AT BEDSIDE. SAT UP AND ASSISTED WITH BREAKFAST. TOLERATED JELLO BETTER THAN LIQUIDS. NO VOICE QUALITY. REPOSITIONED FOR SKIN PROTECTION AND COMFORT. PT MAKES NO ATTEMPT TO MOVE SELF. THIRD SPACING NOTED ON POSTERIOR FLANK AND BACK. HOB 30 DEGREES FOR ASPIRATION PRECAUTIONS. BED BATH COMPLETED. MALE PUREWICK IN PLACE. CARE ONGOING.
[2024-11-07 15:09] VITALS: BP 120/81
[2024-11-07 20:00] VITALS: BP 116/86
[2024-11-08] VITALS (7 sets, daily range): BP systolic 99–144; BP diastolic 66–112
--- NOTE | 2024-11-08 05:24 | NUR ---
SHIFT SUMMARY PATIENT RESTING COMFORTABLY IN BED. PRN COMFORT CARE MEDICATIONS GIVEN PER EMAR. WILL AWAKEN TO VERBAL STIMULI. INCOMPREHENSIBLE SOUNDS FOR SPEECH. NASAL CANNULA/MASK IN PLACE. Q2 TURNS FOR COMFORT AND SKIN PROTECTION. MALE PURWICK IN PLACE. CARE ONGOING.
--- NOTE | 2024-11-08 10:57 | NUR ---
AM NOTES; ARRIVED IN THE ROOM PCU10 FROM ICU 15, KALINA FRIEND AT THE BEDSIDE. PT DEMENTED ALERT AND ORIENTED TO SELF AND FAMILY. VITALS HRR SR FIRST DEGREE AVBLOCK, SBP ELEVATED AT 200'S, IV HYDRALAZINE PRN GIVEN, WILL MONITOR BP, SATS ABOVE 95% ON RA, AFEBRILE. PT IN BED RESTING BED ALARM ON FOR SAFETY, WILL CONTINUE TO MONITOR
[2024-11-08] MEDS ORDERED: METO25 PR (14:14)
[2024-11-08] MEDS ORDERED: ACETAMINOPHEN PR (14:16)
[2024-11-08] MEDS ORDERED: ATROPINE SULFATE2 M1 SL (14:17)
[2024-11-08] MEDS ORDERED: Docusate S50 MG/5 ML PO (14:22)
[2024-11-08 14:25] LABS: SARS-Cov-2 (COVID-19) PCR, MMC NEGATIVE (NEGATIVE)
[2024-11-08] MEDS ORDERED: Ativan1 MG PO (14:25)
[2024-11-08] MEDS ORDERED: TRANSDERM-SCOP1 EA13 TD (14:31)
[2024-11-08] MEDS ORDERED: MORP20L SL (14:31)
--- NOTE | 2024-11-08 17:39 | NUR ---
PT'S SON REMAINED AT THE BEDSIDE T/O SHIFT. PLAN TO DC PT TO OR HOSPICE SUPPOSEDLY TODAY BUT WAS RESCHEDULED FOR TOMORROW; COVID SWAB DONE AND WAS NEGATIVE.PT HAS BEEN REPOSITIONED Q2HRS, PT HAS BEEN RESTING MOST OF THE SHIFT, PT IS STILL RESPONSIVE WHEN AWAKE MOSTLY CLOSE ENDED QUESTIONS. MEDICATED FOR PAIN ONCE. HRR HAS REMAINED CONTROL NO RECTAL METOPROLOL WAS GIVEN. WILL REPORT TO ONCOMING SHIFT
--- NOTE | 2024-11-08 18:19 | NUR ---
PALLIATIVE CARE NOTE: CALLED TO GIVE UPDATE AND EXPLAINED COMFORT MEASURES AND POC PT CURRENTLY HAS. WAS APPRECIATIVE OF CALL. SHE WAS TEARFUL WITH CALL. GAVE EMOTIONAL SUPPORT.
[2024-11-09 03:35] VITALS: BP 115/71
--- NOTE | 2024-11-09 05:36 | NUR ---
SHIFT SUMMARY PATIENT ALERT AND ORIENTED X2. PATIENT DROWSY AND SLEPT ALL NIGHT, DID NOT APPEAR TO BE IN ANY PAIN. ON 6 LITERS O2 VIA NC. NO ACUTE ISSUES NOTED OVERNIGHT. WILL CONTINUE TO MONITOR. CALL LIGHT WITHIN REACH.
[2024-11-09 09:02] VITALS: BP 115/85
[2024-11-09] MEDS ORDERED: OxyCODONE HCL 5 MG TAB PO PRN (09:05)
--- NOTE | 2024-11-09 10:18 | NUR ---
D/C SUMMARY- PT TO NC ON COMFORT CARE/HOSPICE THE PT HAS BEEN DROWSY AND OREINTEDX2-3. HE IS ARROUSABLE, BUT WANTING TO REST. HE HAS MEDICATED FOR PAIN THIS MORNING PER PT AND PT'S SON REQUEST. THE PT AND SONE DID NOT WANT THE LOPRESSOR SUPOSITORY GIVEN D/T DISCOMFORT. THIS WAS DISCUSSED W/ DR. SIMS. WHEN OFFERING THE PT A DICKEY FOR DISCHARGE, THE SON AND PT OPTED TO WAIT AT THIS TIME. A BEDBATH AND 2X ORAL CARE WAS COMPLETED. HE REMAINS ON 6-7L NC AT THIS TIME W/O ANY SOB. TRANSPORT PICKED UP THE PT AT 1005 AND THE PT'S SON ABILIO HAS ALL THE PT'S BELONGINGS. REPORT WAS GIVEN TO GLORIA PLATA AT THE NC/ [phone] EXT. [phone]. NO FURTHER NOTES.
== END 2024-11-09 10:35 | disposition hospice, home (50) | DRG 308 ==
LOC: ER 15:39 → PCU 15:40 → MEDS 11-03 14:57 → PCU 11-05 16:48
PROVIDERS: Emergency Medicine; Family Medicine; Registered Nurse; ADMIT Student in an Organized Health Care Education/Training Program
DX: I48.91 Unspecified atrial fibrillation (principal); G92.8 Other toxic encephalopathy; G93.41 Metabolic encephalopathy; C15.9 Malignant neoplasm of esophagus, unspecified; E46 Unspecified protein-calorie malnutrition; I50.30 Unspecified diastolic (congestive) heart failure; R65.10 Systemic inflammatory response syndrome (SIRS) of non-infectious origin without acute organ dysfunction; I11.0 Hypertensive heart disease with heart failure; Z51.5 Encounter for palliative care; Z66 Do not resuscitate; E86.0 Dehydration; E78.5 Hyperlipidemia, unspecified; E83.42 Hypomagnesemia; I95.9 Hypotension, unspecified; M1A.9XX0 Chronic gout, unspecified, without tophus (tophi); T39.95XA Adverse effect of unspecified nonopioid analgesic, antipyretic and antirheumatic, initial encounter; N40.0 Benign prostatic hyperplasia without lower urinary tract symptoms; K21.9 Gastro-esophageal reflux disease without esophagitis; Z79.82 Long term (current) use of aspirin; Z68.25 Body mass index [BMI] 25.0-25.9, adult
CPT/HCPCS: 36415; 51701; 70450; 71045; 80053; 81001; 82947; 83690; 83735; 83880; 84100; 84134; 84443; 85025; 86140; 92526; 92610; 93005; 93010; 93306; 94762; 96361; 96365; 96366; 96375; 96376; 97162; 97166; 97530; 97535; 99285-25; A9270; G0378; J1650; J1938; J2060; J3475; J7030; J7040; J7120; U0002